=== PATIENT | male | born 2000 | race Caucasian/White ===

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

== ENCOUNTER 2022-09-02 08:30 | Emergency (ER) | payer OTHER, SELFPAY ==
[2022-09-02 08:37] VITALS: BP 133/75; PULSE 81; RESP 16; TEMP 37; O2SAT 98
--- NOTE | 2022-09-02 08:50 | ED.EYEPROB ---
HPI - Eye Problem General Chief complaint: Eye Problems Stated complaint: Right eye Time Seen by Provider: 09/02/22 08:51 Source: patient Mode of arrival: ambulatory Limitations: no limitations History of Present Illness HPI Narrative: 22 y/o male presented for c/o right eye irritation worsening since yesterday mid afternoon. States he may have something in the eye but denies injury or a FB entering the eye. 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 States he rinsed the eye with water yesterday, and was unable to visualize anything in the eye when he looked. Endorses photophobia and tearing since waking today. Denies pain or purulent drainage, denies vision changes. MD chief complaint: eye pain Related Data Allergies Allergy/AdvReac Type Severity Reaction Status Date / Time No Known Allergies Allergy Verified 09/02/22 08:48 Review of Systems Review of Systems: CONSTITUTIONAL: Denies body aches, fever, chills EYES:Endorses FB sensation, photophobia Denies visual changes ENT: Denies rhinorrhea, congestion, sore throat, or otalgia. CARDIOVASCULAR: Denies chest pain, palpitations RESPIRATORY: Denies cough or dyspnea. GASTROINTESTINAL: Denies abdominal pain, nausea, vomiting, or diarrhea. SKIN: Denies rash, itching, or wounds. MUSCULOSKELETAL: Denies back pain, joint pain, or myalgia. NEUROLOGIC: Denies headache, numbness, tingling, or weakness. All systems reviewed & are unremarkable except as noted in HPI and below PMFSH Past Medical History Medical History No pertinent past medical history Comments At time of signature, I have reviewed and agree with nursing past medical, surgical, social and family history unless otherwise noted. Please see nursing chart for further information. There is no relevant family history pertinent to the presenting complaint Exam Narrative: GENERAL: Well-appearing HEAD: Normocephalic, atraumatic. EYES: Dougherty lamp exam shows <1mm dark FB to 3 o'clock position of pupil over iris. Right conjunctival injection, minimal upper eye lid swelling. No purulent drainage. PERRLA. EOMI. ENT: Mucous membranes pink and moist. No rhinorrhea. TMs normal bilaterally. Throat normal. Uvula midline. CHEST: Clear to auscultation. HEART: Regular rate and rhythm. ABDOMEN: Soft, nontender, nondistended SKIN: Warm, dry, no rash. Normal skin turgor. NEURO: No focal deficits. Alert and oriented x3 PSYCH: Normal affect. Course Course Emergency Course: Patient is aware of diagnosis, understands and agrees to treatment plan. Anticipatory guidance given. Patient agrees to follow-up as directed and is aware of reasons to seek care at the emergency department. Portions of this record may have been created with voice recognition software Level of Care: Express Care Visit Vital Signs Vital signs: Vital Signs Temperature 98.6 F 09/02/22 08:37 Pulse Rate 81 09/02/22 08:37 Respiratory Rate 16 09/02/22 08:37 Blood Pressure 133/75 09/02/22 08:37 Pulse Oximetry 98 09/02/22 08:37 Oxygen Delivery Room Air 09/02/22 08:37 Temperature 98.6 F 09/02/22 08:37 Pulse Rate 81 09/02/22 08:37 Respiratory Rate 16 09/02/22 08:37 Blood Pressure 133/75 09/02/22 08:37 Pulse Oximetry 98 09/02/22 08:37 Oxygen Delivery Room Air 09/02/22 08:37 Procedures FB Removal Eye Foreign Body #1: Foreign Body Removal Date: 09/02/22 Location: eye (R) Topical anesthetic used: tetracaine Foreign body: other (unspecified, dark) Evidence of corneal penetration: Yes Technique: irrigation, eye wash bottle and cotton tip swab Procedure performed under: direct visualization with magnification and other (dougherty lamp) Patient tolerated procedure: well and no complications Complications: incomplete foreign body removal (dark FB <1mm noted to cott
== END 2022-09-02 09:55 | disposition home or self-care (01) ==
PROVIDERS: Emergency Provider Nurse Practitioner Family; PCP Family Medicine
DX: T15.91XA Foreign body on external eye, part unspecified, right eye, initial encounter (principal); X58.XXXA Exposure to other specified factors, initial encounter; Y99.0 Civilian activity done for income or pay
CPT/HCPCS: 65205; 99213; A9270; G0463

== ENCOUNTER 2025-04-21 11:48 | Outpatient (CLI) | payer OTHER, SELFPAY ==
--- NOTE | ~2025-04-21 | XR_ITS ---
XR sinus min 3V Indication: chronic feeling of something stuck in throat, sinus pressure Comparison: None Technique: 3 view. Findings: No acute fracture or malalignment. No significant degenerative changes. No significant opacification of the soft tissues of sinuses appreciated. Impression: No acute fracture or malalignment. Reviewed, dictated and finalized at location P. 

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
--- OUTSIDE RECORDS SUMMARY | 2025-04-21 13:51 | XMS_ITS | Clinical Summary ---
Author Organization [facility] Address [address] [place] [address] Phone Care Team Providers Care Stapler Hand Name Role Phone Provider, None Primary Care Provider Unavailabl e Allergies No known active allergies Medications No known medications Social History Tobacco Use Types Packs/Day Years Used Date Smoking Tobacco: Never Smokeless Tobacco: Never Tobacco Cessation:Counseling Given: Not Answered Alcohol Use Standard Drinks/Week Comments Not Currently 0 (1 standard drink = 0.6 oz pur e alcohol) Sexually Active Control Partners Comments Yes Sex and Gender Information Value Date Recorded Sex Assigned at Not on file Legal Sex Male 9:21 PM CDT Gender Identity Not on file Sexual Orientation Not on file Last Filed Vital Signs Vital Sign Reading Time Taken Comments Blood Pressure 122/74 02/11/2023 6:00 AM CDT Pulse 87 02/11/2023 6:00 AM CDT Temperature 38.2 C (100.7 F) 02/11/2023 5:31 AM CDT Respiratory Rate 16 02/11/2023 3:28 AM CDT Oxygen Saturation 96% 02/11/2023 6:00 AM CDT Inhaled Oxygen Concentration - - Weight 74.8 kg (165 lb) 02/11/2023 3:28 AM CDT Height 167.6 cm (5' 6) 02/11/2023 3:28 AM CDT Body Mass Index 26.63 02/11/2023 3:28 AM CDT Plan of Treatment Health Maintenance Due Date Last Done Comments Hepatitis C Virus (HCV) Screening 2002 Meningococcal B Immunization (1 of 2 - Standard) 2018 Influenza Immunization (#1) 2025 SARS-COV-2 Immunization ( season) 2025 Respiratory Syncytial Virus (RSV) Immunization (Adult) (dose 75+ series) 2077 Pneumococcal Immunization Combined Aged Out 2002, 2002 No longer eligibl e based on patient's age to complete this topic Hepatitis B Immunization Completed 005, 2002, 2002, Additional history exists Varicella Immunization Completed 01/15/2007, 2004 Human Papillomavirus (HPV) Immunization Completed 01/01/2020, 12/20/2013 Meningococcal Immunization (ACWY) Completed 01/01/2020, 12/20/2013 DTaP/Tdap/Td Immunization Discontinued 2020, 12/20/2013, 01/15/2007, Additional history exists TdaP Immunization Completed 09/10/2020, 12/20/2013 Rotavirus Immunization Aged Out No lo nger eligible based on patient's age to complete this topic Care Teams Stapler Hand Relationship Specialty Start Date End Date Provider, None [place] PCP - General 02/11/23
== END 2025-04-21 11:49 | disposition home or self-care (01) ==
LOC: ANHBWCIMG 11:49
PROVIDERS: PCP Nurse Practitioner Adult Health; Visit Provider Nurse Practitioner Adult Health
DX: J34.89 Other specified disorders of nose and nasal sinuses (principal)
CPT/HCPCS: 70220